=== PATIENT | male | born 2000 | race Hispanic/Latino ===

== ENCOUNTER 2023-03-27 13:04 | Emergency (ER) | payer OTHER ==
[2023-03-27] MEDS ORDERED: Lidocaine 1% (PF) 30 ML VIAL ONE (13:18)
== END 2023-03-27 14:20 ==
LOC: NAV ERS 13:04 → EEVIPCON 13:04 → NAV ERS 14:20
DX: S01.511A Laceration without foreign body of lip, initial encounter (principal); S20.312A Abrasion of left front wall of thorax, initial encounter; F17.210 Nicotine dependence, cigarettes, uncomplicated; Y04.0XXA Assault by unarmed brawl or fight, initial encounter
CPT/HCPCS: 12011; J2001